=== PATIENT | female | born 1975 ===

== ENCOUNTER 2016-11-13 11:00 | Emergency (ER) | payer MEDICAID ==
[2016-11-13 12:03] VITALS: BP 116/64; PULSE 79; RESP 20; TEMP 99.6; O2SAT 99; BMI 27.9
[2016-11-13] MEDS ORDERED: DiphenhydrAMINE 50 mg/ml Inj IM STA (12:37)
--- NOTE | 2016-11-13 13:14 | ED PDOC ---
HPI: Skin/Bite Injury Time Seen by Provider: 11/13/16 12:15 Chief Complaint (Nursing): Abnormal Skin Integrity Chief Complaint (Provider): Rash History Per: Patient History/Exam Limitations: no limitations Onset/Duration Of Symptoms: Days (x2) Current Symptoms Are (Timing): Still Present Additional Complaint(s): Martha is a 41 y/o female who presents to the ED complaining of a rash. Patient states that yesterday she developed a diffuse pruritic rash throughout entire body. States that she had a similar rash last year and was treated with Benadryl and steroids. Took Benadryl at home without relief. Patient is uncertain as to what may have caused the rash. No known allergies. Denies fever , throat swelling, and shortness of breath. PMD: Unknown Past Medical History Reviewed: Historical Data, Nursing Documentation, Vital Signs Vital Signs: Last Vital Signs Temp 99.6 F 11/13/16 12:01 Pulse 79 11/13/16 12:01 Resp 20 11/13/16 12:01 BP 116/64 11/13/16 12:01 Pulse Ox 99 11/13/16 13:16 - Medical History PMH: Anxiety - Surgical History Surgical History: - Family History Family History: States: Unknown Family Hx - Home Medications Home Medications: Ambulatory Orders Medication Instructions Recorded Nitrofurantoin Macrocrystals 100 mg PO BID #14 cap 10/03/15 [Macrobid] Cetirizine HCl [Zyrtec] 10 mg PO DAILY #10 capsule 10/10/15 Famotidine [Pepcid] 20 mg PO Q12 #20 tab 10/10/15 Meclizine [Antivert] 12.5 mg PO BID 10/10/15 predniSONE [predniSONE Tab] 10 mg PO TID #15 tab 10/10/15 Methylprednisolone [Medrol Dose 4 mg PO DAILY #21 mg 11/13/16 Pack (21 tabs)] hydrOXYzine HCl [Atarax] 1 tab PO Q6 PRN #30 tab 11/13/16 - Allergies Allergies/Adverse Reactions: Allergies Allergy/AdvReac Type Severity Reaction Status Date / Time No Known Allergies Allergy Verified 10/10/15 07:56 Review of Systems ROS Statement: Except As Marked, All Systems Reviewed And Found Negative Constitutional: Negative for: Fever ENT: Negative for: Throat Swelling Respiratory: Negative for: Shortness of Breath Skin: Positive for: Rash Physical Exam - Reviewed Nursing Documentation Reviewed: Yes Vital Signs Reviewed: Yes - Physical Exam Appears: Positive for: Well, Non-toxic, No Acute Distress Head Exam: Positive for: ATRAUMATIC, NORMAL INSPECTION, NORMOCEPHALIC Skin: Positive for: Warm, Dry, Rash (scattered urticarial rash with blanching) Eye Exam: Positive for: EOMI, Normal appearance, PERRL ENT: Positive for: Normal ENT Inspection. Negative for: Tonsillar Swelling, Other (uvular swelling) Neck: Positive for: Normal, Painless ROM Cardiovascular/Chest: Positive for: Regular Rate, Rhythm. Negative for: Murmur Respiratory: Positive for: Normal Breath Sounds (clear bilaterally). Negative for: Accessory Muscle Use, Respiratory Distress Extremity: Positive for: Normal ROM. Negative for: Deformity Neurologic/Psych: Positive for: Alert, Oriented, Other (Eating pizza in exam room) - ECG O2 Sat by Pulse Oximetry: 99 (RA) Pulse Ox Interpretation: Normal Medical Decision Making Medical Decision Making: Time: 12:37 Initial Plan: --Benadryl 50 mg IM --Pepcid 40 mg PO --Solu-medrol 125 mg IM Time: 12:55 Clinical Impression: Urticaria Upon provider evaluation patient is medically stable, and requires no further treatment in the ED at this time. Patient will be discharged home with Rx for Atarax and methylprednisolone. Counseling was provided and all questions were answered regarding diagnosis and need for follow up with PMD. There is agreement to discharge plan. Return if symptoms persist or worsen. Scribe Attestation: Documented by Carmen Spring, acting as a scribe for Kvng Leone PA-C Provider Scribe Attestation: All medical record entries made by the Scribe were at my direction and personally dictated by me. I have reviewed the chart and agree that the record accurately reflects my personal performance of the history, physical exam, medical decision making, and the department course for this patient. I have also personally directed, reviewed, and agree with the discharge instructions and disposition. Disposition - Clinical Impression Clinical Impression: Urticaria - Patient ED Disposition Is Patient to be Admitted: No Counseled Patient/Family Regarding: Diagnosis, Need For Followup, Rx Given - Disposition Disposition: Routine/Home Disposition Time: 12:55 Condition: STABLE Prescriptions: hydrOXYzine HCl [Atarax] 1 tab PO Q6 PRN #30 tab PRN Reason: Itching / Pruritus Methylprednisolone [Medrol Dose Pack (21 tabs)] 4 mg PO DAILY #21 mg Instructions: Urticaria (ED) Forms: [facility] (Pashto) Print Language: POLISH
== END 2016-11-13 13:49 | disposition home or self-care (01) ==
LOC: H.ER 11:00
DX: L50.9 Urticaria, unspecified (principal); F41.9 Anxiety disorder, unspecified
CPT/HCPCS: 96372; 99281; J1200; J2930

== ENCOUNTER 2017-04-28 11:44 | Emergency (ER) | payer MEDICAID ==
[2017-04-28 11:56] VITALS: BMI 27.8
[2017-04-28 11:57] VITALS: PULSE 70; RESP 17; TEMP 98.6; O2SAT 98
--- NOTE | 2017-04-28 13:23 | ED PDOC ---
HPI: Back Time Seen by Provider: 04/28/17 12:29 Chief Complaint (Nursing): Back Pain Chief Complaint (Provider): Back Pain History Per: Patient History/Exam Limitations: no limitations Onset/Duration Of Symptoms: Days (x 3) Current Symptoms Are (Timing): Still Present Additional Complaint(s): Ms. Thomas is a 41 year old female who presents to the ED with right lower back pain for 3 days that radiates to abdomen. Patient reports last time with similar complaint was when she was a teenager with UTI. Patient is currently treated with Anti-bacterial vaginal gel for bacterial infection by OBGYN. Denies taking medications today. PMD: No Family Provider Past Medical History Reviewed: Historical Data, Nursing Documentation, Vital Signs Vital Signs: Last Vital Signs Temp 98.6 F 04/28/17 11:56 Pulse 70 04/28/17 11:56 Resp 17 04/28/17 11:56 BP 116/77 04/28/17 11:56 Pulse Ox 98 04/28/17 12:24 - Medical History PMH: Anxiety - Surgical History Surgical History: - Family History Family History: States: Unknown Family Hx - Home Medications Home Medications: Ambulatory Orders Medication Instructions Recorded Nitrofurantoin Macrocrystals 100 mg PO BID #14 cap 10/03/15 [Macrobid] Cetirizine HCl [Zyrtec] 10 mg PO DAILY #10 capsule 10/10/15 Famotidine [Pepcid] 20 mg PO Q12 #20 tab 10/10/15 Meclizine [Antivert] 12.5 mg PO BID 10/10/15 predniSONE [predniSONE Tab] 10 mg PO TID #15 tab 10/10/15 Methylprednisolone [Medrol Dose 4 mg PO DAILY #21 mg 11/13/16 Pack (21 tabs)] hydrOXYzine HCl [Atarax] 1 tab PO Q6 PRN #30 tab 11/13/16 - Allergies Allergies/Adverse Reactions: Allergies Allergy/AdvReac Type Severity Reaction Status Date / Time No Known Allergies Allergy Verified 10/10/15 07:56 Review of Systems ROS Statement: Except As Marked, All Systems Reviewed And Found Negative Musculoskeletal: Positive for: Back Pain (Right lower) Physical Exam - Reviewed Nursing Documentation Reviewed: Yes Vital Signs Reviewed: Yes - Physical Exam Appears: Positive for: Non-toxic Head Exam: Positive for: ATRAUMATIC, NORMAL INSPECTION, NORMOCEPHALIC Skin: Positive for: Normal Color, Warm, Dry Eye Exam: Positive for: Normal appearance, EOMI, PERRL ENT: Positive for: Normal ENT Inspection Neck: Positive for: Normal, Supple Cardiovascular/Chest: Positive for: Regular Rate, Rhythm Respiratory: Negative for: Accessory Muscle Use, Respiratory Distress Gastrointestinal/Abdominal: Positive for: Normal Exam Back: Positive for: Normal Inspection Extremity: Positive for: Normal ROM, Other. Negative for: Deformity Neurologic/Psych: Positive for: Alert, Oriented (x 3), Other ((+): Right-side straight leg raise) - ECG O2 Sat by Pulse Oximetry: 98 Disposition - Disposition
--- NOTE | 2017-04-28 13:27 | ED PDOC ---
HPI: Back Time Seen by Provider: 04/28/17 12:29 Chief Complaint (Nursing): Back Pain Chief Complaint (Provider): Back Pain History Per: Patient History/Exam Limitations: no limitations Onset/Duration Of Symptoms: Days (x 3) Current Symptoms Are (Timing): Still Present Additional Complaint(s): Ms. Thomas is a 41 year old female who presents to the ED for right lower back pain in 3 days that radiates to abdomen. Patient reports last time with similar complaint was when she was a teenager with UTI. Patient is currently treated with Anti-bacterial vaginal gel for bacterial infection by OBGYN. Denies taking medications today. No N/V. No fever/chills. PMD: No Family Provider Past Medical History Reviewed: Historical Data, Nursing Documentation, Vital Signs Vital Signs: Last Vital Signs Temp 98.6 F 04/28/17 11:56 Pulse 70 04/28/17 11:56 Resp 17 04/28/17 11:56 BP 116/77 04/28/17 11:56 Pulse Ox 98 04/28/17 12:24 - Medical History PMH: Anxiety - Surgical History Surgical History: - Family History Family History: States: Unknown Family Hx - Home Medications Home Medications: Ambulatory Orders Medication Instructions Recorded Nitrofurantoin Macrocrystals 100 mg PO BID #14 cap 10/03/15 [Macrobid] Cetirizine HCl [Zyrtec] 10 mg PO DAILY #10 capsule 10/10/15 Famotidine [Pepcid] 20 mg PO Q12 #20 tab 10/10/15 Meclizine [Antivert] 12.5 mg PO BID 10/10/15 predniSONE [predniSONE Tab] 10 mg PO TID #15 tab 10/10/15 Methylprednisolone [Medrol Dose 4 mg PO DAILY #21 mg 11/13/16 Pack (21 tabs)] hydrOXYzine HCl [Atarax] 1 tab PO Q6 PRN #30 tab 11/13/16 diaZEpam [Valium] 5 mg PO Q6H PRN #15 tab 04/28/17 - Allergies Allergies/Adverse Reactions: Allergies Allergy/AdvReac Type Severity Reaction Status Date / Time No Known Allergies Allergy Verified 10/10/15 07:56 Review of Systems ROS Statement: Except As Marked, All Systems Reviewed And Found Negative Musculoskeletal: Positive for: Back Pain (Right-lower) Physical Exam - Reviewed Nursing Documentation Reviewed: Yes Vital Signs Reviewed: Yes - Physical Exam Appears: Positive for: Non-toxic Head Exam: Positive for: ATRAUMATIC, NORMAL INSPECTION, NORMOCEPHALIC Skin: Positive for: Normal Color, Dry Eye Exam: Positive for: Normal appearance ENT: Positive for: Normal ENT Inspection Neck: Positive for: Normal Cardiovascular/Chest: Positive for: Regular Rate, Rhythm Respiratory: Positive for: Normal Breath Sounds. Negative for: Accessory Muscle Use, Respiratory Distress Gastrointestinal/Abdominal: Positive for: Normal Exam, Bowel Sounds, Soft. Negative for: Tenderness Back: Positive for: Normal Inspection Extremity: Positive for: Normal ROM. Negative for: Deformity Neurologic/Psych: Positive for: Alert, Oriented (x 3), Other ((+): Right side straight leg raise) - Laboratory Results Result Diagrams: 04/28/17 13:20 04/28/17 13:20 - ECG O2 Sat by Pulse Oximetry: 98 (RA) Pulse Ox Interpretation: Normal Medical Decision Making Medical Decision Making: Time: 13:10 Impression: Back Pain Plan: - CT Abdominal and Pelvis without PO or IV Contrast - CMP - CBC Stat - Urine Culture - Urinalysis Stat Normal labs, normal urine. Normal CT. Scribe Attestation: Documented by Ronald Chapman, acting as a scribe for Betty Hargroev PA-C. Provider Scribe Attestation: All medical record entries made by the Scribe were at my direction and personally dictated by me. I have reviewed the chart and agree that the record accurately reflects my personal performance of the history, physical exam, medical decision making, and the department course for this patient. I have also personally directed, reviewed, and agree with the discharge instructions and disposition. Disposition - Clinical Impression Clinical Impression: Sciatica - Patient ED Disposition Is Patient to be Admitted: No Counseled Patient/Family Regarding: Diagnosis, Need For Followup, Rx Given - Disposition Disposition: Routine/Home Disposition Time: 15:49 Condition: GOOD Prescriptions: diaZEpam [Valium] 5 mg PO Q6H PRN #15 tab PRN Reason: Pain Instructions: Sciatica (DC) Forms: [email or web address] (Irish)
[2017-04-28 13:35] LABS: MEAN CELL VOLUME 87.8 fl (81.0-99.0); MEAN CORPUSCULAR HEMOGLOBIN 29.5 pg (27.0-31.0); MEAN CORPUSCULAR HGB CONC 33.6 g/dL (33.0-37.0); RBC 4.74 Mil/uL (3.80-5.20); RED CELL DISTRIBUTION WIDTH 12.6 % (11.5-14.5); WHITE BLOOD COUNT 4.8 K/uL (4.8-10.8)
[2017-04-28 13:42] LABS: SQUAMOUS EPITHIAL < 1 /hpf (0-5); URINE BILIRUBIN NEGATIVE (NEGATIVE); URINE BLOOD NEGATIVE (NEGATIVE); URINE CLARITY CLEAR (Clear); URINE COLOR YELLOW (YELLOW); URINE GLUCOSE (UA) NEG (Normal); URINE LEUKOCYTE ESTERASE NEG Leu/uL (Negative); URINE NITRATE NEGATIVE (NEGATIVE); URINE PROTEIN NEGATIVE (NEGATIVE); URINE UROBILINOGEN 0.2-1.0 mg/dL (0.2-1.0)
[2017-04-28 13:43] LABS: ALB/GLOB RATIO 1.2 (1.0-2.1); ALBUMIN 4.2 g/dL (3.5-5.0); ALT/SGPT 27 U/L (9-52); AST/SGOT 22 U/L (14-36); BLOOD UREA NITROGEN 16 mg/dl (7-17); CALCIUM 9.1 mg/dL (8.4-10.2); GFR AFRICAN-AMERICAN > 60; GFR NON-AFRICAN AMERICAN > 60
--- NOTE | 2017-04-28 14:45 | CT ---
PROCEDURE: CT scan abdomen pelvis dated 04/28/2017 HISTORY: Right flank pain. COMPARISON: Comparison made with prior study dated 12/26/2011. TECHNIQUE: Contiguous helical/transaxial images of the abdomen and pelvis performed without oral or intravenous contrast material. Additional 2 dimensional sagittal and coronal reformats provided. Radiation dose: Total exam DLP = This CT exam was performed using one or more of the following dose reduction techniques: Automated exposure control, adjustment of the mA and/or kV according to patient size, and/or use of iterative reconstruction technique. . FINDINGS: LOWER THORAX: Lung bases are clear. No infiltrate effusion or basilar pneumothorax. . LIVER: Liver exhibits normal size measuring nearly 15 cm in CC dimension. No obvious hepatic mass collection or calcification. GALLBLADDER AND BILE DUCTS: Gallbladder is appears incompletely distended. No evidence of intraluminal gallbladder calculi. . PANCREAS: Visualized portions of the pancreas unremarkable. SPLEEN: Spleen exhibits normal size and attenuation pattern. ADRENALS: No adrenal lesions are identified. KIDNEYS AND URETERS: Unremarkable. No stone or hydronephrosis. BLADDER: Urinary bladder is physiologically distended. No evidence of intraluminal urinary bladder calculi. REPRODUCTIVE: Uterus is somewhat prominent and lobular . Questionable uterine fibroid in the left parasagittal posterior fundal region. Followup nonemergent pelvic ultrasound could be performed for further evaluation. APPENDIX: Normal-appearing debris and air-filled retrocecal appendix best seen on coronal image number [id number] and axial image number [id number]. BOWEL: Evaluation of the bowel is limited due to the lack of oral contrast material. Stomach is at distended with food debris liquid and air. Visualized loops of small bowel exhibit relatively normal contour and caliber. No evidence of acute mechanical small bowel obstruction. Moderate amount of stool seen throughout the large bowel particularly the cecum at ascending and proximal transverse colon suggesting mild fecal retention/constipation. . Scattered colonic diverticula seen however no radiographic evidence of acute diverticulitis. PERITONEUM: Unremarkable. No fluid collection. No free air. Small fat containing umbilical hernia. LYMPH NODES: Few small nonspecific retroperitoneal and mesenteric lymph nodes are present. VASCULATURE: Unremarkable. No aortic aneurysm. BONES: No fracture or destructive lesion. OTHER FINDINGS: None. IMPRESSION: No acute intra abdominal pathology. No evidence of acute appendicitis. Findings suggest mild fecal retention/constipation. Small fat containing umbilical hernia. No evidence of obstructive nephrolithiasis. Possible uterine fibroid versus artifact ; follow-up nonemergent pelvic ultrasound could be performed for further evaluation.
[2017-04-28 16:23] VITALS: BP 120/70
== END 2017-04-28 16:23 | disposition home or self-care (01) ==
LOC: H.ER 11:44
DX: M54.31 Sciatica, right side (principal)

== ENCOUNTER 2018-01-08 11:57 | Day surgery (SDC) | payer MEDICAID ==
[2018-01-08] MEDS: Lactated Ringer's 500 ML IV ONE (13:52)
[2018-01-08] MEDS ORDERED: Propofol 10 mg/ml Inj (20 ML) ONE (15:09)
[2018-01-08] MEDS ORDERED: Lactated Ringer's 500 ML IV SCH (15:45)
[2018-01-08 17:11] VITALS: BP 116/64; PULSE 76; RESP 18; TEMP 98.6; O2SAT 99
== END 2018-01-08 17:15 | disposition home or self-care (01) ==
LOC: H.ENDO 11:57
PROVIDERS: ATTEND Internal Medicine Gastroenterology
DX: K59.09 Other constipation (principal); F41.9 Anxiety disorder, unspecified; F32.9 Major depressive disorder, single episode, unspecified; K62.1 Rectal polyp; K63.89 Other specified diseases of intestine; K64.0 First degree hemorrhoids
CPT/HCPCS: 45380; 88305; J2001; J2704; J7120